=== PATIENT | male | born 1935 | race Caucasian/White ===

== ENCOUNTER → 2023-07-16 09:35 | Outpatient (REF) | payer MEDICARE, OTHER, SELFPAY ==
[2023-07-16 12:49] LABS: Blood Urea Nitrogen 40 mg/dl (9-20); Calcium 9.5 mg/dl (8.4-10.2); Carbon Dioxide 21 mmol/L (22-30); Chloride 109 mmol/L (98-107); Glucose 122 mg/dl (70-99); Potassium 4.6 mmol/L (3.5-5.1); Sodium 141 mmol/L (135-145)
== END ==
LOC: HWLAB 09:35
PROVIDERS: ATTENDING PHYSICIAN Specialist; FAMILY PHYSICIAN Nurse Practitioner Family; REFERRING PHYSICIAN Nuclear Medicine Nuclear Cardiology
DX: R80.9 Proteinuria, unspecified (principal); N18.32 Chronic kidney disease, stage 3b; N25.81 Secondary hyperparathyroidism of renal origin
CPT/HCPCS: 36415; 80048

== ENCOUNTER → 2023-08-07 11:15 | Outpatient (REF) | payer MEDICARE, OTHER, SELFPAY ==
[2023-08-07 16:30] LABS: Blood Urea Nitrogen 30 mg/dl (9-20); Calcium 9.3 mg/dl (8.4-10.2); Carbon Dioxide 18 mmol/L (22-30); Chloride 110 mmol/L (98-107); Glucose 124 mg/dl (70-99); Potassium 4.3 mmol/L (3.5-5.1); Sodium 137 mmol/L (135-145)
== END ==
LOC: HWLAB 11:15
PROVIDERS: ATTENDING PHYSICIAN Specialist; FAMILY PHYSICIAN Nurse Practitioner Family
DX: E78.5 Hyperlipidemia, unspecified (principal); R80.9 Proteinuria, unspecified; E03.9 Hypothyroidism, unspecified; N25.81 Secondary hyperparathyroidism of renal origin; N18.9 Chronic kidney disease, unspecified
CPT/HCPCS: 36415; 80048

== ENCOUNTER → 2023-09-17 09:28 | Outpatient (REF) | payer MEDICARE, OTHER, SELFPAY ==
[2023-09-17 13:07] LABS: Blood Urea Nitrogen 47 mg/dl (9-20); Calcium 9.6 mg/dl (8.4-10.2); Carbon Dioxide 22 mmol/L (22-30); Chloride 109 mmol/L (98-107); Glucose 107 mg/dl (70-99); Potassium 5.1 mmol/L (3.5-5.1); Sodium 138 mmol/L (135-145); eGFR 38.78
== END ==
LOC: HWLAB 09:28
PROVIDERS: ATTENDING PHYSICIAN Specialist; FAMILY PHYSICIAN Nurse Practitioner Family
DX: N25.81 Secondary hyperparathyroidism of renal origin (principal); N18.32 Chronic kidney disease, stage 3b; R80.9 Proteinuria, unspecified
CPT/HCPCS: 36415; 80048

== ENCOUNTER → 2023-10-17 10:00 | Outpatient (REF) | payer MEDICARE, OTHER, SELFPAY ==
[2023-10-17 12:21] LABS: Blood Urea Nitrogen 35 mg/dl (9-20); Calcium 9.7 mg/dl (8.4-10.2); Carbon Dioxide 19 mmol/L (22-30); Chloride 113 mmol/L (98-107); Glucose 121 mg/dl (70-99); Potassium 4.6 mmol/L (3.5-5.1); Sodium 141 mmol/L (135-145)
== END ==
LOC: HWLAB 10:00
PROVIDERS: ATTENDING PHYSICIAN Specialist; FAMILY PHYSICIAN Nurse Practitioner Family
DX: E78.5 Hyperlipidemia, unspecified (principal); E03.9 Hypothyroidism, unspecified; R80.9 Proteinuria, unspecified; N17.9 Acute kidney failure, unspecified; Z85.528 Personal history of other malignant neoplasm of kidney
CPT/HCPCS: 36415; 80048

== ENCOUNTER → 2023-11-17 11:19 | Outpatient (REF) | payer MEDICARE, OTHER, SELFPAY ==
[2023-11-17 16:04] LABS: Hematocrit 39.2 % (39.0-52.0); Hemoglobin 13.3 g/dL (13.0-18.0)
[2023-11-17 16:11] LABS: Albumin 4.1 g/dl (3.5-5.0); Blood Urea Nitrogen 36 mg/dl (9-20); Calcium 9.7 mg/dl (8.4-10.2); Carbon Dioxide 17 mmol/L (22-30); Chloride 113 mmol/L (98-107); Glucose 122 mg/dl (70-99); Phosphorus 3.8 mg/dl (2.5-4.5); Potassium 4.8 mmol/L (3.5-5.1); Sodium 140 mmol/L (135-145); eGFR 45.06
[2023-11-17 16:24] LABS: Protein/creatinine Ratio 0.3; Urine Protein 33 mg/dl
[2023-11-18 10:17] LABS: Intact PTH 63.2 pg/ml (13.6-85.8)
== END ==
LOC: HWLAB 11:19
PROVIDERS: ATTENDING PHYSICIAN Specialist; FAMILY PHYSICIAN Nurse Practitioner Family
DX: E03.9 Hypothyroidism, unspecified (principal); R80.9 Proteinuria, unspecified; N17.9 Acute kidney failure, unspecified
CPT/HCPCS: 36415; 80069; 82570; 83970; 84156; 85014; 85018

== ENCOUNTER → 2023-11-24 11:07 | Outpatient (REF) | payer MEDICARE, OTHER, SELFPAY ==
[2023-11-24 15:46] LABS: Blood Urea Nitrogen 33 mg/dl (9-20); Calcium 9.5 mg/dl (8.4-10.2); Carbon Dioxide 20 mmol/L (22-30); Chloride 111 mmol/L (98-107); Glucose 107 mg/dl (70-99); Potassium 4.7 mmol/L (3.5-5.1); Sodium 140 mmol/L (135-145); eGFR 45.06
== END ==
LOC: HWLAB 11:07
PROVIDERS: ATTENDING PHYSICIAN Specialist; FAMILY PHYSICIAN Nurse Practitioner Family
DX: N18.9 Chronic kidney disease, unspecified (principal); R80.9 Proteinuria, unspecified
CPT/HCPCS: 36415; 80048

== ENCOUNTER → 2024-01-08 11:04 | Outpatient (REF) | payer MEDICARE, OTHER, SELFPAY ==
[2024-01-08 16:30] LABS: Urine Albumin Trace (Neg - Trace); Urine Bilirubin Negative (Negative); Urine Character Clear (Clear); Urine Color Yellow; Urine Glucose 3+ (Negative); Urine Ketone Negative (Negative); Urine Leukocyte Negative (Negative); Urine Nitrite Negative (Negative); Urine Occult Blood Negative (Negative); Urine Specific Gravity 1.015 (<1.030); Urine Urobilinogen Negative (Neg - 1+)
[2024-01-08 16:36] LABS: % Basophils 0.8 % (0-2); % Eosinophils 5.6 % (0-6); % Immature Granulocytes 0.4 % (0-0.5); % Lymphocytes 23.5 % (20.5-51.1); % Monocytes 10.5 % (1.7-9.3); % Neutrophils 59.2 % (42.2-75.2); Absolute Basophils 0.1 10^3/uL (0-0.2); Absolute Eosinophils 0.6 10^3/uL (0-0.7); Absolute Lymphocytes 2.3 10^3/uL (1.2-3.4); Absolute Neutrophils 5.8 10^3/uL (1.4-6.5); Hematocrit 37.1 % (39.0-52.0); Hemoglobin 12.8 g/dL (13.0-18.0); Mean Corp Hgb Conc. 34.5 g/dL (33.0-37.0); Mean Corpuscular Hgb 33.2 pg (27.0-31.0); Mean Corpuscular Volume 96.4 fL (80.0-94.0); Mean Platelet Volume 10.1 fL (7.4-10.4); Nucleated Red Blood Cells % 0 % (-); Platelet Count 257 10^3/uL (130-400); Red Blood Cell Count 3.85 10^6/uL (4.70-6.10); Red Cell Dist. Width 12.8 % (11.5-14.5); White Blood Cell Count 9.8 10^3/uL (4.8-10.8)
[2024-01-08 16:39] LABS: ALT (SGPT) 17 U/L (0-50); AST (SGOT) 26 U/L (17-59); Albumin 4.2 g/dl (3.5-5.0); Alkaline Phosphatase 70 U/L (38-126); Blood Urea Nitrogen 43 mg/dl (9-20); Calcium 9.8 mg/dl (8.4-10.2); Carbon Dioxide 18 mmol/L (22-30); Chloride 110 mmol/L (98-107); Glucose 118 mg/dl (70-99); HDL Cholesterol 30 mg/dl; LDL Cholesterol, Calculated 95 mg/dl; Potassium 4.6 mmol/L (3.5-5.1); Sodium 137 mmol/L (135-145); Total Bilirubin 0.6 mg/dl (0.2-1.3); Total Cholesterol 158 mg/dl (50-199); Total Protein 7.2 g/dl (6.3-8.2); Triglyceride 167 mg/dl (10-149); Very Low Density Lipoprotein 33 mg/dl (0-30); eGFR 41.44
[2024-01-08 16:53] LABS: Microalbumin, Random Urine 14.1 mg/dl (0.6-1.7); Microalbumin/creatinine Ratio 135.7 mg/g
[2024-01-08 17:08] LABS: TSH Reflex To Free T4 3.62 uIU/ml (0.47-4.68)
== END ==
LOC: HWLAB 11:04
PROVIDERS: ATTENDING PHYSICIAN Specialist; FAMILY PHYSICIAN Nurse Practitioner Family
DX: R80.9 Proteinuria, unspecified (principal); E03.9 Hypothyroidism, unspecified; R73.01 Impaired fasting glucose; I35.1 Nonrheumatic aortic (valve) insufficiency; N18.9 Chronic kidney disease, unspecified; E78.5 Hyperlipidemia, unspecified; R20.0 Anesthesia of skin; R26.89 Other abnormalities of gait and mobility; M48.061 Spinal stenosis, lumbar region without neurogenic claudication; R26.81 Unsteadiness on feet; N18.31 Chronic kidney disease, stage 3a
CPT/HCPCS: 36415; 80053; 80061; 81003; 82043; 82570; 83036; 84443; 85025

== ENCOUNTER → 2024-02-11 11:11 | Outpatient (REF) | payer MEDICARE, OTHER, SELFPAY ==
[2024-02-11 13:42] LABS: Blood Urea Nitrogen 31 mg/dl (9-20); Calcium 9.4 mg/dl (8.4-10.2); Carbon Dioxide 17 mmol/L (22-30); Chloride 109 mmol/L (98-107); Glucose 107 mg/dl (70-99); Phosphorus 3.6 mg/dl (2.5-4.5); Potassium 4.7 mmol/L (3.5-5.1); Sodium 142 mmol/L (135-145); eGFR 41.44
== END ==
LOC: HWLAB 11:11
PROVIDERS: ATTENDING PHYSICIAN Specialist; FAMILY PHYSICIAN Nurse Practitioner Family
DX: R80.9 Proteinuria, unspecified (principal); N18.31 Chronic kidney disease, stage 3a
CPT/HCPCS: 36415; 80069

== ENCOUNTER → 2024-03-11 10:45 | Outpatient (REF) | payer MEDICARE, OTHER, SELFPAY ==
[2024-03-11 12:43] LABS: Blood Urea Nitrogen 27 mg/dl (9-20); Calcium 9.7 mg/dl (8.4-10.2); Carbon Dioxide 21 mmol/L (22-30); Chloride 109 mmol/L (98-107); Glucose 114 mg/dl (70-99); Potassium 4.4 mmol/L (3.5-5.1); Sodium 143 mmol/L (135-145); eGFR 44.78
== END ==
LOC: HWLAB 10:45
PROVIDERS: ATTENDING PHYSICIAN Specialist; FAMILY PHYSICIAN Nurse Practitioner Family
DX: Z90.5 Acquired absence of kidney (principal); N18.31 Chronic kidney disease, stage 3a
CPT/HCPCS: 36415; 80048

== ENCOUNTER → 2024-04-08 10:45 | Outpatient (REF) | payer MEDICARE, OTHER, SELFPAY ==
[2024-04-08 11:53] LABS: % Basophils 0.8 % (0-2); % Eosinophils 5.6 % (0-6); % Immature Granulocytes 0.5 % (0-0.5); % Lymphocytes 20.5 % (20.5-51.1); % Monocytes 9.9 % (1.7-9.3); % Neutrophils 62.7 % (42.2-75.2); Absolute Basophils 0.1 10^3/uL (0-0.2); Absolute Eosinophils 0.5 10^3/uL (0-0.7); Absolute Immature Granulocytes 0.1 10^3/uL (0-0.05); Hematocrit 38.2 % (39.0-52.0); Mean Corpuscular Hgb 33.7 pg (27.0-31.0); Mean Platelet Volume 9.4 fL (7.4-10.4); Nucleated Red Blood Cells % 0 % (-); Platelet Count 231 10^3/uL (130-400); Red Blood Cell Count 3.86 10^6/uL (4.70-6.10); Red Cell Dist. Width 12.8 % (11.5-14.5); White Blood Cell Count 9.6 10^3/uL (4.8-10.8)
[2024-04-08 12:37] LABS: ALT (SGPT) 19 U/L (0-50); AST (SGOT) 22 U/L (17-59); Albumin 4.1 g/dl (3.5-5.0); Alkaline Phosphatase 66 U/L (38-126); Blood Urea Nitrogen 29 mg/dl (9-20); Calcium 9.4 mg/dl (8.4-10.2); Carbon Dioxide 23 mmol/L (22-30); Chloride 107 mmol/L (98-107); Direct Bilirubin 0.2 mg/dl (0.0-0.4); Glucose 107 mg/dl (70-99); HDL Cholesterol 34 mg/dl; LDL Cholesterol, Calculated 95 mg/dl; Potassium 5.1 mmol/L (3.5-5.1); Sodium 144 mmol/L (135-145); Total Bilirubin 0.4 mg/dl (0.2-1.3); Total Cholesterol 158 mg/dl (50-199); Total Protein 7.2 g/dl (6.3-8.2); Triglyceride 145 mg/dl (10-149); Very Low Density Lipoprotein 29 mg/dl (0-30); eGFR 44.78
[2024-04-10 07:53] LABS: Quantiferon Mitogen minus NIL 9.96 IU/mL; Quantiferon NIL 0.04 IU/mL; Quantiferon Plus TB2 minus NIL 0.01 IU/mL (<=0.34); Quantiferon TB Gold Plus Negative (Negative)
== END ==
LOC: HWLAB 10:45
PROVIDERS: ATTENDING PHYSICIAN Dermatology; FAMILY PHYSICIAN Nurse Practitioner Family; OTHER PHYSICIAN Specialist; REFERRING PHYSICIAN Internal Medicine
DX: D22.5 Melanocytic nevi of trunk (principal); L81.4 Other melanin hyperpigmentation; D18.01 Hemangioma of skin and subcutaneous tissue; L82.1 Other seborrheic keratosis; Z08 Encounter for follow-up examination after completed treatment for malignant neoplasm; Z85.828 Personal history of other malignant neoplasm of skin; L40.0 Psoriasis vulgaris
CPT/HCPCS: 36415; 80048; 80061; 80076; 85025; 86480

== ENCOUNTER → 2024-07-13 11:36 | Outpatient (REF) | payer MEDICARE, OTHER, SELFPAY | LOC: HWRAD 11:36 | PROVIDERS: ATTENDING PHYSICIAN Nurse Practitioner Family | DX: R05.1 Acute cough (principal) | CPT/HCPCS: 71046 ==

== ENCOUNTER → 2024-07-16 09:59 | Outpatient (REF) | payer MEDICARE, OTHER, SELFPAY ==
[2024-07-16 12:18] LABS: ALT (SGPT) 19 U/L (0-50); AST (SGOT) 23 U/L (17-59); Albumin 4.1 g/dl (3.5-5.0); Alkaline Phosphatase 73 U/L (38-126); Blood Urea Nitrogen 28 mg/dl (9-20); Calcium 9.3 mg/dl (8.4-10.2); Carbon Dioxide 22 mmol/L (22-30); Chloride 106 mmol/L (98-107); Glucose 117 mg/dl (70-99); HDL Cholesterol 33 mg/dl; LDL Cholesterol, Calculated 95 mg/dl; Phosphorus 3.6 mg/dl (2.5-4.5); Potassium 4.3 mmol/L (3.5-5.1); Sodium 139 mmol/L (135-145); Total Bilirubin 0.8 mg/dl (0.2-1.3); Total Cholesterol 154 mg/dl (50-199); Total Protein 7.1 g/dl (6.3-8.2); Triglyceride 131 mg/dl (10-149); Very Low Density Lipoprotein 26 mg/dl (0-30); eGFR 41.44
[2024-07-16 12:32] LABS: Protein/creatinine Ratio 0.4; Urine Protein 50 mg/dl
[2024-07-16 12:43] LABS: TSH Reflex To Free T4 3.55 uIU/ml (0.47-4.68)
[2024-07-16 15:32] LABS: % Basophils 0.8 % (0-2); % Eosinophils 5.1 % (0-6); % Immature Granulocytes 0.3 % (0-0.5); % Lymphocytes 24.8 % (20.5-51.1); Absolute Basophils 0.1 10^3/uL (0-0.2); Absolute Eosinophils 0.5 10^3/uL (0-0.7); Absolute Lymphocytes 2.3 10^3/uL (1.2-3.4); Absolute Monocytes 0.9 10^3/uL (0.1-0.6); Absolute Neutrophils 5.5 10^3/uL (1.4-6.5); Hematocrit 39.2 % (39.0-52.0); Hemoglobin 13.3 g/dL (13.0-18.0); Mean Corp Hgb Conc. 33.9 g/dL (33.0-37.0); Mean Corpuscular Hgb 33.6 pg (27.0-31.0); Mean Platelet Volume 10.2 fL (7.4-10.4); Nucleated Red Blood Cells % 0 % (-); Platelet Count 233 10^3/uL (130-400); Red Blood Cell Count 3.96 10^6/uL (4.70-6.10); Red Cell Dist. Width 12.8 % (11.5-14.5); White Blood Cell Count 9.3 10^3/uL (4.8-10.8)
== END ==
LOC: HWLAB 09:59
PROVIDERS: ATTENDING PHYSICIAN Specialist; FAMILY PHYSICIAN Nurse Practitioner Family
DX: R26.89 Other abnormalities of gait and mobility (principal); Z13.31 Encounter for screening for depression; R80.9 Proteinuria, unspecified; E03.9 Hypothyroidism, unspecified; R73.01 Impaired fasting glucose; I35.1 Nonrheumatic aortic (valve) insufficiency; N18.9 Chronic kidney disease, unspecified; R20.0 Anesthesia of skin; E78.5 Hyperlipidemia, unspecified; R05.1 Acute cough
CPT/HCPCS: 36415; 80053; 80061; 82570; 83036; 84100; 84156; 84443; 85025

== ENCOUNTER → 2024-09-21 10:18 | Outpatient (REF) | payer MEDICARE, OTHER, SELFPAY ==
[2024-09-21 12:14] LABS: Albumin 4.2 g/dl (3.5-5.0); Blood Urea Nitrogen 41 mg/dl (9-20); Calcium 9.4 mg/dl (8.4-10.2); Carbon Dioxide 22 mmol/L (22-30); Chloride 110 mmol/L (98-107); Glucose 117 mg/dl (70-99); Phosphorus 3.7 mg/dl (2.5-4.5); Potassium 4.9 mmol/L (3.5-5.1); Sodium 142 mmol/L (135-145); eGFR 38.53
[2024-09-21 12:26] LABS: Hematocrit 39.4 % (39.0-52.0); Hemoglobin 13.6 g/dL (13.0-18.0); Intact PTH 115.4 pg/ml (13.6-85.8)
[2024-09-21 13:02] LABS: Protein/creatinine Ratio 0.4; Urine Protein 40 mg/dl
== END ==
LOC: HWLAB 10:18
PROVIDERS: ATTENDING PHYSICIAN Specialist; FAMILY PHYSICIAN Nurse Practitioner Family
DX: E78.5 Hyperlipidemia, unspecified (principal); E03.9 Hypothyroidism, unspecified; R80.9 Proteinuria, unspecified; N17.9 Acute kidney failure, unspecified; N25.81 Secondary hyperparathyroidism of renal origin
CPT/HCPCS: 36415; 80069; 82570; 83970; 84156; 85014; 85018

== ENCOUNTER → 2024-11-01 11:05 | Outpatient (REF) | payer MEDICARE, OTHER, SELFPAY ==
[2024-11-01 15:55] LABS: Blood Urea Nitrogen 39 mg/dl (9-20); Calcium 9.3 mg/dl (8.4-10.2); Carbon Dioxide 20 mmol/L (22-30); Chloride 112 mmol/L (98-107); Glucose 124 mg/dl (70-99); Sodium 142 mmol/L (135-145); eGFR 48.65
== END ==
LOC: HWLAB 11:05
PROVIDERS: ATTENDING PHYSICIAN Specialist; FAMILY PHYSICIAN Nurse Practitioner Family
DX: N18.30 Chronic kidney disease, stage 3 unspecified (principal)
CPT/HCPCS: 36415; 80048

== ENCOUNTER → 2024-12-28 11:05 | Outpatient (REF) | payer MEDICARE, OTHER, SELFPAY | LOC: HWRAD 11:05 | PROVIDERS: ATTENDING PHYSICIAN Surgery; FAMILY PHYSICIAN Nurse Practitioner Family | DX: N32.1 Vesicointestinal fistula (principal) | CPT/HCPCS: 74176 ==

== ENCOUNTER → 2025-01-14 10:25 | Outpatient (REF) | payer MEDICARE, OTHER, SELFPAY ==
[2025-01-14 12:28] LABS: Hematocrit 38.2 % (39.0-52.0); Hemoglobin 12.6 g/dL (13.0-18.0); Mean Corp Hgb Conc. 33.0 g/dL (33.0-37.0); Mean Corpuscular Volume 101.3 fL (80.0-94.0); Nucleated Red Blood Cells % 0 % (-); Platelet Count 240 10^3/uL (130-400); Red Cell Dist. Width 12.8 % (11.5-14.5)
[2025-01-14 12:53] LABS: Glycohemoglobin (HgbA1c) 6.0 % (4.0-5.6)
[2025-01-14 14:37] LABS: ALT (SGPT) 18 U/L (0-50); AST (SGOT) 22 U/L (17-59); Albumin 4.3 g/dl (3.5-5.0); Alkaline Phosphatase 68 U/L (38-126); Blood Urea Nitrogen 37 mg/dl (9-20); Calcium 9.4 mg/dl (8.4-10.2); Carbon Dioxide 25 mmol/L (22-30); Chloride 111 mmol/L (98-107); Glucose 107 mg/dl (70-99); HDL Cholesterol 31 mg/dl; LDL Cholesterol, Calculated 107 mg/dl; Potassium 5.4 mmol/L (3.5-5.1); Sodium 142 mmol/L (135-145); Total Protein 7.5 g/dl (6.3-8.2); Very Low Density Lipoprotein 26 mg/dl (0-30); eGFR 44.50
== END ==
LOC: HWLAB 10:25
PROVIDERS: ATTENDING PHYSICIAN Specialist; FAMILY PHYSICIAN Nurse Practitioner Family
DX: N18.30 Chronic kidney disease, stage 3 unspecified (principal); R26.89 Other abnormalities of gait and mobility; R26.81 Unsteadiness on feet; Z13.31 Encounter for screening for depression; R80.9 Proteinuria, unspecified; E03.9 Hypothyroidism, unspecified; R73.01 Impaired fasting glucose; Z85.46 Personal history of malignant neoplasm of prostate; Z85.528 Personal history of other malignant neoplasm of kidney; I35.1 Nonrheumatic aortic (valve) insufficiency; N18.9 Chronic kidney disease, unspecified; E78.5 Hyperlipidemia, unspecified; R20.0 Anesthesia of skin; M48.061 Spinal stenosis, lumbar region without neurogenic claudication; R05.1 Acute cough; N32.1 Vesicointestinal fistula
CPT/HCPCS: 36415; 80053; 80061; 82570; 83036; 83970; 84100; 84156; 84439; 84443; 85025

== ENCOUNTER → 2025-01-20 08:17 | Outpatient (REF) | payer MEDICARE, OTHER, SELFPAY | LOC: HWRCS 08:17 | PROVIDERS: ATTENDING PHYSICIAN Internal Medicine Cardiovascular Disease; FAMILY PHYSICIAN Nurse Practitioner Family | DX: I34.0 Nonrheumatic mitral (valve) insufficiency (principal); I35.1 Nonrheumatic aortic (valve) insufficiency | CPT/HCPCS: 93306 ==

== ENCOUNTER → 2025-01-27 11:14 | Outpatient (REF) | payer MEDICARE, OTHER, SELFPAY | LOC: HWRCS 11:14 | PROVIDERS: ATTENDING PHYSICIAN Internal Medicine Cardiovascular Disease; FAMILY PHYSICIAN Nurse Practitioner Family | DX: I34.0 Nonrheumatic mitral (valve) insufficiency (principal); I35.1 Nonrheumatic aortic (valve) insufficiency; R94.31 Abnormal electrocardiogram [ECG] [EKG] | CPT/HCPCS: 78452; 93017; A9500; J2785 ==

== ENCOUNTER → 2025-02-04 10:19 | Outpatient (REF) | payer MEDICARE, OTHER, SELFPAY ==
[2025-02-04 12:33] LABS: Hematocrit 36.7 % (39.0-52.0); Hemoglobin 12.1 g/dL (13.0-18.0); Mean Corp Hgb Conc. 33.0 g/dL (33.0-37.0); Mean Corpuscular Volume 99.5 fL (80.0-94.0); Nucleated Red Blood Cells % 0 % (-); Platelet Count 254 10^3/uL (130-400); Red Cell Dist. Width 12.6 % (11.5-14.5)
[2025-02-04 12:55] LABS: Blood Urea Nitrogen 41 mg/dl (9-20); Calcium 9.8 mg/dl (8.4-10.2); Carbon Dioxide 25 mmol/L (22-30); Chloride 110 mmol/L (98-107); Glucose 124 mg/dl (70-99); Iron 112 ug/dl (49-181); Potassium 5.1 mmol/L (3.5-5.1); Sodium 141 mmol/L (135-145); eGFR 48.34
[2025-02-04 13:04] LABS: Total Iron Binding Capacity 245 ug/dl (261-462)
[2025-02-04 13:24] LABS: Ferritin 153.0 ng/ml (17.9-464.0)
[2025-02-04 13:39] LABS: Vitamin B12 466 pg/ml (239-931)
== END ==
LOC: HWLAB 10:19
PROVIDERS: ATTENDING PHYSICIAN Nurse Practitioner Family
DX: D64.9 Anemia, unspecified (principal); D75.89 Other specified diseases of blood and blood-forming organs; K90.0 Celiac disease
CPT/HCPCS: 36415; 80048; 82607; 82728; 83540; 83550; 85025

== ENCOUNTER 2025-03-31 05:54 | Inpatient (IN) | payer MEDICARE, OTHER, SELFPAY ==
[2025-03-28 12:05] LABS: Hematocrit 36.9 % (39.0-52.0); Hemoglobin 12.1 g/dL (13.0-18.0); Mean Corp Hgb Conc. 32.8 g/dL (33.0-37.0); Mean Corpuscular Volume 101.9 fL (80.0-94.0); Platelet Count 310 10^3/uL (130-400); Red Cell Dist. Width 12.3 % (11.5-14.5)
[2025-03-28 12:24] LABS: INR 1.08; PT 14.3 Sec (11.4-14.6)
[2025-03-28 12:25] LABS: APTT 29.8 Sec (23.4-35.0)
[2025-03-28 12:36] LABS: ALT (SGPT) 18 U/L (0-50); AST (SGOT) 22 U/L (17-59); Albumin 4.1 g/dl (3.5-5.0); Alkaline Phosphatase 67 U/L (38-126); Blood Urea Nitrogen 30 mg/dl (9-20); Calcium 9.5 mg/dl (8.4-10.2); Carbon Dioxide 25 mmol/L (22-30); Chloride 108 mmol/L (98-107); Glucose 122 mg/dl (70-99); Potassium 5.2 mmol/L (3.5-5.1); Sodium 142 mmol/L (135-145); Total Protein 7.5 g/dl (6.3-8.2); eGFR 48.34
[2025-03-28 13:42] VITALS: BMI 32.0
[2025-03-28 14:56] LABS: Glycohemoglobin (HgbA1c) 6.2 % (4.0-5.9)
[2025-03-31] VITALS (26 sets, daily range): BP systolic 40–155; BP diastolic 52–77; BMI 32.0
[2025-03-31] MEDS: TYLENOL 1000 MG PO (06:49)
[2025-03-31] MEDS: HEPARIN 5000 UNITS SC (06:50)
[2025-03-31] MEDS: NORMOSOL-R/PLASMALYTE-A 1000 IV ×2 (06:53→19:51)
--- NOTE | 2025-03-31 14:51 | W.IMMPOSTOP ---
Surgical Immed Post Op Note
-
Primary Surgeon: David Tamez MD
Urologists: Osmani Singh MD and Ami Urena MD
Industrial Electrical Technician: FOZIA Israel and Nadege Pérez PA-C, JOSÉ MIGUEL
Pre-op Diagnosis: Colovesical fistula
Post-op Diagnosis: Same
Procedure Performed: Cystoscopy with left ureteral stent/ICG by Dr. Walker; Robotic cystorrhaphy by Dr. Urena.
Robotic low anterior resection with takedown of splenic flexure, intracorporeal anastomosis
Anesthesia Type: GET
Specimen / Cultures: Sigmoid colon (open end is proximal) and additional portion of sigmoid (open end is distal)
Estimated Blood Loss: 100cc
Complications: None
Operative Findings: Colovesical fistula
Long segment of chronic diverticulitis
28mm EEA
Normal leak test
#19 Johnny in the pelvis (near bladder repair)
Left ureteral stent removed at the end (intact)
Patient's updated in the recovery room
[2025-03-31] MEDS: ZOFRAN 4 MG IV (15:14)
[2025-03-31 15:34] LABS: Glucose - Point of Care 215 mg/dl (70-99)
[2025-03-31] MEDS: NOVOLOG vial 1 UNITS SC (15:49)
[2025-03-31 16:03] LABS: Blood Urea Nitrogen 23 mg/dl (9-20); Calcium 8.1 mg/dl (8.4-10.2); Carbon Dioxide 21 mmol/L (22-30); Chloride 106 mmol/L (98-107); Estimated Creatinine Clearance 46 ml/min; Glucose 197 mg/dl (70-99); Hematocrit 32.3 % (39.0-52.0); Hemoglobin 10.4 g/dL (13.0-18.0); Mean Corp Hgb Conc. 32.2 g/dL (33.0-37.0); Mean Corpuscular Volume 99.7 fL (80.0-94.0); Platelet Count 234 10^3/uL (130-400); Potassium 4.2 mmol/L (3.5-5.1); Red Cell Dist. Width 12.5 % (11.5-14.5); Sodium 138 mmol/L (135-145); eGFR 58.17
--- NOTE | 2025-03-31 16:35 | CON.HOSP ---
Addendum entered and electronically signed by Karina Whitehead MD 03/31/25 17:38:
Leukocytosis:
Possibly reactive, received IV antibiotic perioperatively.
Consider reinstate antibiotic if worsening symptoms
Original Note:
Consultation
-
Requesting Provider: David Tamez MD
Performing Provider: Karina Whitehead MD
Reason for Consultation: Medical management
Family Physician
-
Family Physician: JOSÉ MIGUEL Jones
Chief Complaint
-
Postoperative medical management
History of Present Illness
Patient is a pleasant 89 years old male with history of diabetes, hypertension, hyperlipidemia, hypothyroidism, history of renal cell carcinoma status post nephrectomy in 2005 who came to the hospital for elective colovesicular fistula repair done
by colorectal surgery/urologist.
Patient seen and examined in the PACU, denies chest pain or shortness of breath, complaining of abdominal pain.
Consult requested for hospitalist for medical manage.
Medical History
Past Medical History
Past Medical History: Reports Cancer
Additional Past Medical History:
Cancer (Renal cell CA 2005. Prostate cancer 2006.), Hypothyroidism, Other (Osteoarthritis right knee, diverticulitis)
Past Surgical History: Reports Other
Additional Past Surgical History:
Cholecystectomy, Orthopedic (Ankle surgeries), Urological (Right nephrectomy 2005, prostatectomy 2006)
Social History
Tobacco: Non-smoker
Alcohol: None
Drug: None
Living: With Family
Family History
Family History: Reviewed & Not Pertinent
Allergies / Home Medications
Allergies reflects when Allergies were last updated in [employer].
Home Medications with original date entered in [employer]
Allergy/Medication List:
Allergies
Allergy/AdvReac Type Severity Reaction Status Date / Time
gluten Allergy Unknown Verified 03/28/25 14:40
Home Medications
levothyroxine 25 mcg tablet 25 mcg PO DAILY Thyroid 05/11/12
ascorbic acid (vitamin C) 500 mg tablet (Vitamin C) 2,000 mg PO DAILY Supplement 11/14/21
cholecalciferol (vitamin D3) 25 mcg (1,000 unit) tablet 1,000 units PO DAILY Supplement 11/14/21
glucosamine QPc-T0-Gjikhntth ari 1,500 mg-400 unit-100 mg tablet (Osteo Bi-Flex (5-Loxin)) 2 ea PO DAILY Supplement 11/14/21
lisinopril 2.5 mg tablet 5 mg PO DAILY@0100 Blood pressure 11/14/21
multivitamin with folic acid 400 mcg tablet (Tab-A-David) 1 tab PO DAILY Supplement 11/14/21
vitamin B complex 1 tab PO DAILY Supplement 11/14/21
Skyrizi 1 dose SC Q12W 03/28/25
bisacodyl 5 mg tablet,delayed release (Dulcolax (bisacodyl)) 5 mg PO DIRECTED 03/28/25
empagliflozin 25 mg tablet (Jardiance) 25 mg PO DAILY 03/28/25
metronidazole 1 dose PO DIRECTED 03/28/25
neomycin 1 dose PO DIRECTED 03/28/25
peg 3350-electrolytes 236 gram-22.74 gram-6.74 gram-5.86 gram solution (Golytely) ml PO DIRECTED 03/28/25
sodium bicarbonate 650 mg tablet 650 mg PO BID 03/28/25
Review of Systems
-
Unable to obtain full review of systems at this time due to: Acuity
Respiratory: Reports Trouble Breathing
Cardiac: Reports Chest Pain
Abdomen/GI: Denies Abdominal Pain
Physical Exam
Vital Signs
Vital Signs
Temp Pulse Resp BP Pulse Ox
97.3 F 73 23 129/77 98
03/31/25 16:08 03/31/25 16:15 03/31/25 16:15 03/31/25 16:15 03/31/25 16:15
Physical Exam
General: Well Developed, Well Nourished and No Apparent Distress
HEENT: Normocephalic, Moist Mucous Membranes and Atraumatic
Respiratory: Rales
Cardiac: S1/S2 and Regular Rhythm; Negative Murmur or Rub
GI: Tender and Other (KAT drain in place)
Rectal: Deferred by Provider
Musculoskeletal: No Clubbing, No Cyanosis and No Edema
Skin: Negative Rash
Neuro: Nonfocal/Grossly Intact
Laboratory Results
-
Laboratory Results
03/31/25 15:37
03/31/25 15:37
PT 14.3 Sec (11.4-14.6) 03/28/25 09:10
INR 1.08 03/28/25 09:10
APTT 29.8 Sec (23.4-35.0) 03/28/25 09:10
Total Bilirubin 0.6 mg/dl (0.2-1.3) 03/28/25 09:10
AST 22 U/L (17-59) 03/28/25 09:10
ALT 18 U/L (0-50) 03/28/25 09:10
Alkaline Phosphatase 67 U/L (38-126) 03/28/25 09:10
Impression / Plan
-
Impression :
patient is 89 years old with history of colovesicular fistula admitted for elective Cystoscopy with left ureteral stent/ICG by Dr. Walker; Robotic cystorrhaphy by Dr. Urena. Robotic low anterior resection with takedown of splenic flexure,
intracorporeal anastomosis
Assessment/plan:
Postoperative medical management.
Patient with colovesicular fistula, admitted for elective surgery done by rectal surgery and urology.
Continue pain control.
Started on clear liquid diet.
Continue management in IMU postoperative
Monitor H&H postoperatively
Advance diet as tolerated by primary team
PT/OT consult.
Status post Invanz in the OR, medication to continue antibiotic currently
History of diabetes mellitus
Continue home medication
Insulin sliding scale
Diabetic diet
Hemoglobin A1c
History of hypertension
Continue home meds
History of hypothyroidism.
Continue Synthroid
History of renal cell carcinoma status post nephrectomy in 2005.
Kidney function stable.
Continue to monitor.
Avoid nephrotoxic
CODE STATUS: Full code
DVT prophylaxis: SCDS, pharmacological DVT prophylaxis once cleared with surgery.
Diet: Liquid diet now, advance to diabetic diet once cleared by surgery
Disposition: Admit to IMU for close monitoring.
Total time spent on today's encounter was 75 minutes which included time spent in counseling the patient/family regarding diagnosis and treatment plan as listed above, goals of care, and symptom management. Case was discussed with nursing staff,
specialists, and care coordinators/case management. All labs and imaging personally reviewed by me. Remainder the time spent in detailed review of previous records, lab data, imaging, and other medical provider documentation.
--- NOTE | 2025-03-31 18:29 | PTCARENOTE ---
Pt received from ED via bed. VSS. Surgical incisions C/D/I. Family at bedside.
[2025-03-31] MEDS: TYLENOL PO ×2 (19:37)
[2025-03-31] MEDS: NORMOSOL-R/PLASMALYTE-A IV (19:37)
[2025-03-31] MEDS: ROXICODONE 5 MG PO ×2 (19:44→23:47)
[2025-03-31] MEDS: TYLENOL 650 MG PO ×2 (19:51→23:30)
[2025-04-01] VITALS (30 sets, daily range): BP systolic 97–149; BP diastolic 49–79; PULSE 73–80; O2SAT 97
--- NOTE | 2025-04-01 00:41 | PTCARENOTE ---
Assumed care of patient from kevin RN. Pt aaox3 and [place] with b/t HAs in place. NSR on the monitor, SpO2 97% on 1L NC. Turner in place draining yellow urine. Patient with three abdominal lap sites, one lower abdomen transverse incision; all sites
are approximated and c/d/i. RLQ abdominal KAT drain with 150 mL of sanguinous output so far this shift. Dressing at site of KAT drain C/D/I. RUBIA Tylenol and additional PRN pain meds administered for pt's abdominal pain r/t surgery (see MAR). Patient
is currently resting in bed asleep with call sheffield in reach.
[2025-04-01] MEDS: TYLENOL 650 MG PO ×4 (04:29→23:09)
[2025-04-01] MEDS: SYNTHROID 25 MCG PO (04:29)
[2025-04-01 05:48] LABS: Hematocrit 30.3 % (39.0-52.0); Hemoglobin 10.3 g/dL (13.0-18.0); Mean Corp Hgb Conc. 34.0 g/dL (33.0-37.0); Mean Corpuscular Volume 99.3 fL (80.0-94.0); Nucleated Red Blood Cells % 0 % (-); Platelet Count 224 10^3/uL (130-400); Red Cell Dist. Width 12.7 % (11.5-14.5)
[2025-04-01 06:02] LABS: Blood Urea Nitrogen 23 mg/dl (9-20); Calcium 8.0 mg/dl (8.4-10.2); Carbon Dioxide 25 mmol/L (22-30); Chloride 106 mmol/L (98-107); Estimated Creatinine Clearance 43 ml/min; Glucose 138 mg/dl (70-99); Potassium 4.6 mmol/L (3.5-5.1); Sodium 137 mmol/L (135-145); eGFR 52.84
--- NOTE | 2025-04-01 08:52 | W.PN.CRS1 ---
Today's Communication / Plan
-
clears
OOB
maintain chavez
stent d/c'ed
start heparin sq
Assessment/Plan
-
POD#1 Robotic low anterior resection secondary to colovesical fistula
Patient only has one kidney
vitals: normal
Urine output: 700ml
KAT drain: 350ml
-Continue on clears today with ivfs
-OOB as tolerated with PT/OT
-Appreciate hospitalist
-Maintain KAT drain until discharge
-Continue chavez secondary to colovesical fistula, will keep in until urology determination
-Start heparin subq for dvt prophylaxis. TEDS/SCDS in place.
-OR pathology pending
-Stent removed at bedside
-Pain control: Tyelnol standing, Dilaudid and oxycodone PRN
Subjective Data
Procedure
03/31/2025- Cystoscopy with left ureteral stent/ICG by Dr. Walker; Robotic cystorrhaphy by Dr. Urena.
Robotic low anterior resection with takedown of splenic flexure, intracorporeal anastomosis
Subjective Data
Date of Service: April 01, 2025
Patient states he feels a little bloated this morning. He hasn't tried clears yet. Denies nausea or vomiting. Mild pain but medication is helping.
Objective Data
-
Vital Signs
Temp Pulse Resp BP Pulse Ox
98.0 F 66 17 121/62 97
04/01/25 06:10 04/01/25 05:46 04/01/25 05:46 04/01/25 05:46 04/01/25 05:46
Intake & Output
03/31/25 04/01/25 04/02/25
06:59 06:59 06:59
Intake Total 1920 / 1920
Output Total 1050 / 1050
Balance 870 / 870
Intake:
Oral fluids 720 / 720
IV fluids (Total) 1200 / 1200
Normosol 300 / 300
Output:
Drain Output (Total) 350 / 350
Lower Abdomen Robinson-Warren 350 / 350
Urine, Chavez 700 / 700
Lab Results
04/01/25 05:19
04/01/25 05:19
Physical Exam
-
General: No Acute Distress and AOx3
Abdomen: Soft, Distended (mild), Tender (mild around incisions) and Other (KAT - serosanginous)
Skin: Warm and Dry
Wound: No Signs of Infection
Incision: Clear, Dry, Intact
[2025-04-01 09:10] LABS: Glucose - Point of Care 126 mg/dl (70-99)
[2025-04-01] MEDS: SODIUM BICARBONATE 650 MG PO ×2 (09:21→23:09)
[2025-04-01] MEDS: NORMOSOL-R/PLASMALYTE-A 1000 IV ×2 (11:45→23:09)
[2025-04-01 13:20] LABS: Glucose - Point of Care 124 mg/dl (70-99)
[2025-04-01] MEDS: TYLENOL PO ×2 (13:29→21:00)
--- NOTE | 2025-04-01 17:35 | W.PN.HOSP.TC ---
Today's Communication/Plan
-
See plan
Assessment / Plan
Assessment / Plan
Physical Exam
General: Well Developed, Well Nourished and No Apparent Distress
HEENT: Normocephalic, Moist Mucous Membranes and Atraumatic
Respiratory: Rales
Cardiac: S1/S2 and Regular Rhythm; Negative Murmur or Rub
GI: Tender and Other (KAT drain in place)
Rectal: Deferred by Provider
Musculoskeletal: No Clubbing, No Cyanosis and No Edema
Skin: Negative Rash
Neuro: Nonfocal/Grossly Intact
Assessment/Plan
89 year old male with history of colovesicular fistula admitted for elective Cystoscopy with left ureteral stent/ICG by Dr. Singh; Robotic cystorrhaphy by Dr. Urena. Robotic low anterior resection with takedown of splenic flexure,
intracorporeal anastomosis
Postoperative medical management.
Patient with colovesicular fistula, admitted for elective surgery done by rectal surgery and urology.
Continue pain control.
Started on clear liquid diet -- continue
Continue management in IMU postoperative
Monitor H&H postoperatively
Advance diet as tolerated by primary team
PT/OT consult.
Status post Invanz in the OR
Leukocytosis:
Possibly reactive, received IV antibiotic perioperatively.
Consider reinstate antibiotic if worsening symptoms
History of diabetes mellitus
Insulin sliding scale
Diabetic diet
Hemoglobin A1c on 03/28/25 was 6.2%
History of hypertension
Continue home Lisinopril
History of hypothyroidism.
Continue Synthroid
History of renal cell carcinoma status post nephrectomy in 2005.
Kidney function stable.
Continue to monitor.
Avoid nephrotoxic
CODE STATUS: Full code
DVT prophylaxis: SCDS, pharmacological DVT prophylaxis with subq Heparin as per surgery
Diet: Liquid diet now, advance to diabetic diet once cleared by surgery
Disposition: Continue to monitor in IMU for close monitoring.
Anticipated Discharge: > 48 hours
Subjective/Interval History
-
Date of Service: April 01, 2025
Patient was seen and examined. He denied any new symptoms or complaints.
Objective Data
-
Labs:
Laboratory Results
04/01/25
05:19
WBC 14.5 H
Hgb 10.3 L
Hct 30.3 L
Plt Count 224
Sodium 137
Potassium 4.6
Chloride 106
Carbon Dioxide 25
BUN 23 H
Creatinine 1.3
Glucose 138 H
Calcium 8.0 L
Vital Signs:
Vital Signs
Temp Pulse Resp BP Pulse Ox
97.6 F 65 18 139/57 95
04/01/25 16:52 04/01/25 14:00 04/01/25 14:00 04/01/25 14:00 04/01/25 14:13
I&O
03/31/25 04/01/25 04/02/25
06:59 06:59 06:59
Intake Total 1920 / 1920 540 / 540
Output Total 1050 / 1050 325 / 325
Balance 870 / 870 215 / 215
--- NOTE | 2025-04-01 17:40 | PTCARENOTE ---
Pt's assessment as documented. Aox3. NSR on tele monitor. OOB to chair with PT. Surgical incisions C/D/I. KAT drain with large amount of drainage. Family at bedside, updated on plan of care. Pt ringing appropriately, call sheffield within reach.
[2025-04-01] MEDS: HEPARIN 5000 UNITS SC ×2 (17:50→23:10)
[2025-04-01 17:59] LABS: Glucose - Point of Care 137 mg/dl (70-99)
--- NOTE | 2025-04-01 18:16 | CM ---
I.A: Completed By JONATHON Boogie
Patient lives in a 2 Story House with hsi with 12 steps to enter, a rolling walkinger, cane, No othe rDME, No VN/PT, and No Inpatient Rehab..
PCP: Philip Pompa
Pharmacy: [facility].
Consult in for DC planning, but PT/OT did not walk the patient yet so will continue to follow. PLAN: Home with PT vs. No Needs.
[2025-04-01 21:58] LABS: Glucose - Point of Care 132 mg/dl (70-99)
[2025-04-02] VITALS (15 sets, daily range): BP systolic 102–145; BP diastolic 46–91; BMI 32.9; BMI 33.6
[2025-04-02] MEDS: ZESTRIL 5 MG PO (00:05)
[2025-04-02] MEDS: SYNTHROID 25 MCG PO (04:43)
[2025-04-02] MEDS: TYLENOL 650 MG PO ×4 (04:43→19:42)
[2025-04-02 05:35] LABS: Blood Urea Nitrogen 23 mg/dl (9-20); Calcium 7.8 mg/dl (8.4-10.2); Carbon Dioxide 25 mmol/L (22-30); Chloride 107 mmol/L (98-107); Estimated Creatinine Clearance 41 ml/min; Glucose 109 mg/dl (70-99); Potassium 4.0 mmol/L (3.5-5.1); Sodium 134 mmol/L (135-145); eGFR 48.34
[2025-04-02 05:37] LABS: Hematocrit 27.6 % (39.0-52.0); Hemoglobin 9.3 g/dL (13.0-18.0); Mean Corp Hgb Conc. 33.7 g/dL (33.0-37.0); Mean Corpuscular Volume 100.0 fL (80.0-94.0); Nucleated Red Blood Cells % 0 % (-); Platelet Count 179 10^3/uL (130-400); Red Cell Dist. Width 12.8 % (11.5-14.5)
--- NOTE | 2025-04-02 07:28 | PTCARENOTE ---
overnight associate note. Pt aaox3 and JENA. SpO2 95% on RA. Turner in place draining yellow urine. Dressing at site of KAT drain saturated. Dressing reinforced with split gauze and ABD pad. VS and assessment as documented. Patient is currently resting in bed
asleep with call sheffield in reach.
[2025-04-02 07:50] LABS: Glucose - Point of Care 103 mg/dl (70-99)
--- NOTE | 2025-04-02 07:59 | W.PN.HOSP.TC ---
Today's Communication/Plan
-
See plan, stable
Assessment / Plan
Assessment / Plan
Physical Exam
General: Well Developed, Well Nourished and No Apparent Distress
HEENT: Normocephalic, Moist Mucous Membranes and Atraumatic
Respiratory: Rales
Cardiac: S1/S2 and Regular Rhythm; Negative Murmur or Rub
GI: Tender and Other (KAT drain in place)
Rectal: Deferred by Provider
Musculoskeletal: No Clubbing, No Cyanosis and No Edema
Skin: Negative Rash
Neuro: Nonfocal/Grossly Intact
Assessment/Plan
89 year old male with history of colovesicular fistula admitted for elective Cystoscopy with left ureteral stent/ICG by Dr. Singh; Robotic cystorrhaphy by Dr. Urena. Robotic low anterior resection with takedown of splenic flexure,
intracorporeal anastomosis
Postoperative medical management.
Patient with colovesicular fistula, admitted for elective surgery done by rectal surgery and urology.
Continue pain control.
Started on clear liquid diet -- continue
Continue management in IMU postoperative
Monitor H&H postoperatively
Advance diet as tolerated by primary team
PT/OT consult.
Status post Invanz in the OR
Leukocytosis:
Possibly reactive, received IV antibiotic perioperatively.
Consider reinstate antibiotic if worsening symptoms
History of diabetes mellitus
Insulin sliding scale
Diabetic diet
Hemoglobin A1c on 03/28/25 was 6.2%
History of hypertension
Continue home Lisinopril
History of hypothyroidism.
Continue Synthroid
History of renal cell carcinoma status post nephrectomy in 2005.
Kidney function stable.
Continue to monitor.
Avoid nephrotoxic
CODE STATUS: Full code
DVT prophylaxis: SCDS, pharmacological DVT prophylaxis with subq Heparin as per surgery
Diet: Liquid diet now, advance to diabetic diet once cleared by surgery
Disposition: Continue to monitor in IMU for close monitoring.
Anticipated Discharge: > 48 hours
Subjective/Interval History
-
Date of Service: April 02, 2025
Patient was seen and examined. He denied any new symptoms or complaints.
Objective Data
-
Labs:
Laboratory Results
04/02/25
04:46
WBC 13.1 H
Hgb 9.3 L
Hct 27.6 L
Plt Count 179 D
Sodium 134 L
Potassium 4.0
Chloride 107
Carbon Dioxide 25
BUN 23 H
Creatinine 1.4 H
Glucose 109 H
Calcium 7.8 L
Vital Signs:
Vital Signs
Temp Pulse Resp BP Pulse Ox
97.5 F 56 19 124/56 96
04/02/25 07:34 04/02/25 07:00 04/02/25 07:00 04/02/25 07:00 04/02/25 07:00
I&O
04/01/25 04/02/25 04/03/25
06:59 06:59 06:59
Intake Total 1919
Output Total 1050 / 1050 1585 / 1585
Balance 870 / 870 335 / 335
[2025-04-02] MEDS: HEPARIN 5000 UNITS SC ×2 (08:27→15:20)
[2025-04-02] MEDS: SODIUM BICARBONATE 650 MG PO ×2 (08:27→19:42)
--- NOTE | 2025-04-02 08:32 | PTCARENOTE ---
Received patient from shift supervisor melting. Patient resting comfortably in bed. AAO, VSS. No events noted overnight. No complaints of pain at this time aside from a little back pain relieved by the tylenol. Normosol @ 75mL/hr through IV. Lap sites and
transverse incision approximated and intact. Right side KAT with serosanguineous output. Will get OOB to chair, and try walking in the room with rolling walker. No testing scheduled at this time. Call sheffield in reach.
--- NOTE | 2025-04-02 09:36 | W.PN.CRS1 ---
Addendum entered and electronically signed by Rasheed Martinez MD 04/02/25 15:04:
Patient seen and examined in follow-up with surgical PA. Agree with documented progress note.
Postoperative incisional pain control.
No nausea. Passing flatus, no bowel movement
AFVSS
NAD AAO x 3
ABD: Soft, nondistended, mild incisional tenderness.
KAT with serosanguineous fluid.
Chavez clear yellow urine
A/P: POD #2 status post RAL LAR and takedown colovesical fistula
Overall doing well postop.
Reactive leukocytosis improving
Slight drift in hemoglobin but no signs of bleeding
Cautious dietary advancement, full liquids
Maintain Chavez due to CV fistula repair
Original Note:
Today's Communication / Plan
-
advance to fulls
maintain chavez
Assessment/Plan
-
POD#2 Robotic low anterior resection secondary to colovesical fistula
Patient only has one kidney
vitals: normal
Urine output: 1275ml
KAT drain: 310ml
-Advance to full liquids with ivfs
-OOB as tolerated with PT/OT
-Appreciate hospitalist
-Maintain KAT drain until discharge
-Continue chavez secondary to colovesical fistula, will keep in until urology determination
-Heparin subq for dvt prophylaxis. TEDS/SCDS in place.
-OR pathology pending
-Stent removed at bedside
-Pain control: Tylenol standing, Dilaudid and oxycodone PRN
Subjective Data
Procedure
03/31/2025- Cystoscopy with left ureteral stent/ICG by Dr. Walker; Robotic cystorrhaphy by Dr. Urena.
Robotic low anterior resection with takedown of splenic flexure, intracorporeal anastomosis
Subjective Data
Date of Service: April 02, 2025
Patient states he is feeling well. He is tolerating clears. He has flatus but no bowel movements yet. Pain is minimal. Denies nausea or vomiting.
Objective Data
-
Vital Signs
Temp Pulse Resp BP Pulse Ox
97.5 F 56 19 124/56 96
04/02/25 07:34 04/02/25 07:00 04/02/25 07:00 04/02/25 07:00 04/02/25 07:00
Intake & Output
04/01/25 04/02/25 04/03/25
06:59 06:59 06:59
Intake Total 1920 / 1920 1920 / 1920
Output Total 1050 / 1050 1585 / 1585
Balance 870 / 870 335 / 335
Intake:
Oral fluids 720 / 720 1020 / 1020
IV fluids (Total) 1200 / 1200 900 / 900
Normosol 300 / 300
Output:
Drain Output (Total) 350 / 350 310 / 310
Lower Abdomen Robinson-Warren 350 / 350 310 / 310
Urine, Chavez 700 / 700 1275 / 1275
Lab Results
04/02/25 04:46
04/02/25 04:46
Physical Exam
-
General: No Acute Distress and AOx3
Abdomen: Soft, Non Distended and Non Tender
Skin: Warm and Dry
Incision: Clear, Dry, Intact
[2025-04-02] MEDS: TYLENOL PO (12:05)
[2025-04-02 13:05] LABS: Glucose - Point of Care 117 mg/dl (70-99)
--- NOTE | 2025-04-02 16:37 | PTCARENOTE ---
Patient OOB to chair. Walked approx. 100ft in the room with a rolling walker with minimum assistance.
[2025-04-02 18:23] LABS: Glucose - Point of Care 126 mg/dl (70-99)
[2025-04-02] MEDS: NORMOSOL-R/PLASMALYTE-A 1000 IV (19:56)
[2025-04-02] MEDS: ROXICODONE 5 MG PO (20:43)
--- NOTE | 2025-04-02 20:47 | PTCARENOTE ---
Scheduled tylenol given at 1999. Incisional pain controlled but has persistent back pain. Repositioned in bed. Pt now stating his back pain is not relieved. Oxycodone 5 mg given for breakthrough pain. Continuing to monitor.
[2025-04-02 21:43] LABS: Glucose - Point of Care 120 mg/dl (70-99)
[2025-04-03] VITALS (14 sets, daily range): BP systolic 112–166; BP diastolic 49–108; BMI 32.2
[2025-04-03] MEDS: HEPARIN 5000 UNITS SC ×3 (01:34→17:11)
[2025-04-03] MEDS: TYLENOL 650 MG PO ×6 (01:35→21:22)
[2025-04-03] MEDS: ZESTRIL 5 MG PO (01:35)
[2025-04-03] MEDS: SYNTHROID 25 MCG PO (05:15)
[2025-04-03 05:31] LABS: Hematocrit 26.8 % (39.0-52.0); Hemoglobin 9.2 g/dL (13.0-18.0); Mean Corp Hgb Conc. 34.3 g/dL (33.0-37.0); Mean Corpuscular Volume 99.3 fL (80.0-94.0); Platelet Count 166 10^3/uL (130-400); Red Cell Dist. Width 12.6 % (11.5-14.5)
[2025-04-03 05:52] LABS: Blood Urea Nitrogen 16 mg/dl (9-20); Calcium 8.0 mg/dl (8.4-10.2); Carbon Dioxide 24 mmol/L (22-30); Chloride 109 mmol/L (98-107); Estimated Creatinine Clearance 51 ml/min; Glucose 97 mg/dl (70-99); Potassium 4.2 mmol/L (3.5-5.1); Sodium 137 mmol/L (135-145); eGFR > 60.00
--- NOTE | 2025-04-03 08:29 | W.PN.CRS1 ---
Today's Communication / Plan
-
try fulls for breakfast then advance to low residue
transfer to med surg
d/c ivfs
Assessment/Plan
-
POD#3 Robotic low anterior resection secondary to colovesical fistula
Patient only has one kidney
vitals: normal
Urine output: 2050ml
KAT drain: 305ml
-Advance to low residue if tolerates fulls (patient did not try fulls yesterday)
-Transfer to med surg
-D/C IVFs
-OOB as tolerated with PT/OT
-Appreciate hospitalist
-Maintain KAT drain until discharge
-Continue chavez secondary to colovesical fistula, will keep in until urology determination
-Heparin subq for dvt prophylaxis. TEDS/SCDS in place.
-OR pathology pending
-Pain control: Tylenol standing, Dilaudid and oxycodone PRN
-Dispo: home with PT vs no needs, anticipate as soon as tomorrow
Subjective Data
Procedure
03/31/2025- Cystoscopy with left ureteral stent/ICG by Dr. Walker; Robotic cystorrhaphy by Dr. Urena.
Robotic low anterior resection with takedown of splenic flexure, intracorporeal anastomosis
Subjective Data
Date of Service: April 03, 2025
Patient states he feels well. He denies nausea or vomiting. He has virtually no pain. He has bowel movements (no blood) and has flatus.
Objective Data
-
Vital Signs
Temp Pulse Resp BP Pulse Ox
97.5 F 55 15 137/58 95
04/03/25 07:00 04/03/25 01:35 04/02/25 22:00 04/03/25 01:35 04/02/25 22:00
Intake & Output
04/02/25 04/03/25 04/04/25
06:59 06:59 06:59
Intake Total 1920 / 1920 1380 / 1380
Output Total 1585 / 1585 2805 / 2805
Balance 335 / 335 -1425 / -1425
Intake:
Oral fluids 1020 / 1020 480 / 480
IV fluids (Total) 900 / 900 900 / 900
Output:
Drain Output (Total) 310 / 310 305 / 305
Lower Abdomen Robinson-Warren 310 / 310 305 / 305
Urine, Chavez 1275 / 1275 2049
Urine, Voided 450 / 450
Other:
Number of unmeasured liquid
stools
Rectum 1
Lab Results
04/03/25 05:12
04/03/25 05:12
Physical Exam
-
General: No Acute Distress and AOx3
Abdomen: Soft, Non Distended, Non Tender and Other (KAT drain serosanginous)
Skin: Warm and Dry
Incision: Clear, Dry, Intact
[2025-04-03 08:48] LABS: Glucose - Point of Care 104 mg/dl (70-99)
[2025-04-03] MEDS: SODIUM BICARBONATE 650 MG PO ×2 (09:16→21:23)
--- NOTE | 2025-04-03 11:24 | PTCARENOTE ---
Report given to Alejandrina CASTRO for transfer to room 210. Patient educated about plan of care and new room. Patient is in good spirits. Mild back pain relieved with Tylenol. Patient tolerated clear liquid diet, concerned about gluten free full liquid
options. Food line contacted patient to guide him with ordering safely.
[2025-04-03] MEDS: NORMOSOL-R/PLASMALYTE-A IV ×2 (12:30→17:52)
[2025-04-03 13:34] LABS: Glucose - Point of Care 119 mg/dl (70-99)
[2025-04-03 17:45] LABS: Glucose - Point of Care 122 mg/dl (70-99)
--- NOTE | 2025-04-03 18:03 | W.PN.HOSP.TC ---
Today's Communication/Plan
-
Was on oxygen in IMU, now weaned off to room air
See plan
Assessment / Plan
Assessment / Plan
Physical Exam
General: Well Developed, Well Nourished and No Apparent Distress
HEENT: Normocephalic, Moist Mucous Membranes and Atraumatic
Respiratory: Rales
Cardiac: S1/S2 and Regular Rhythm; Negative Murmur or Rub
GI: Tender and Other (KAT drain in place)
Rectal: Deferred by Provider
Musculoskeletal: No Clubbing, No Cyanosis and No Edema
Skin: Negative Rash
Neuro: Nonfocal/Grossly Intact
Assessment/Plan
89 year old male with history of colovesicular fistula admitted for elective Cystoscopy with left ureteral stent/ICG by Dr. Singh; Robotic cystorrhaphy by Dr. Urena. Robotic low anterior resection with takedown of splenic flexure,
intracorporeal anastomosis
Postoperative medical management.
Patient with colovesicular fistula, admitted for elective surgery done by rectal surgery and urology.
Continue pain control.
Now on Full Liquids Diet -- continue
Continue management in IMU postoperative
Monitor H&H postoperatively
Advance diet as tolerated by primary team
PT/OT consult.
Status post Invanz in the OR
Leukocytosis:
NOW RESOLVED
Possibly reactive, received IV antibiotic perioperatively.
Consider reinstate antibiotic if worsening symptoms
History of diabetes mellitus
Insulin sliding scale
Diabetic diet
Hemoglobin A1c on 03/28/25 was 6.2%
Glucose values are currently in acceptable range
History of hypertension
Continue home Lisinopril
History of hypothyroidism.
Continue Synthroid
History of renal cell carcinoma status post nephrectomy in 2005.
Kidney function stable.
Continue to monitor.
Avoid nephrotoxic
CODE STATUS: Full code
DVT prophylaxis: SCDS, pharmacological DVT prophylaxis with subq Heparin as per surgery
Diet: Liquid diet now, advance to diabetic diet once cleared by surgery
Disposition: Continue to monitor in IMU for close monitoring.
Anticipated Discharge: 24 - 48 hours
Subjective/Interval History
-
Date of Service: April 03, 2025
Patient was seen and examined. He denied any new symptoms or complaints.
Objective Data
-
Vital Signs:
Vital Signs
Temp Pulse Resp BP Pulse Ox
98.4 F 58 16 135/61 100
04/03/25 15:05 04/03/25 15:05 04/03/25 15:05 04/03/25 15:05 04/03/25 15:05
I&O
04/02/25 04/03/25 04/04/25
06:59 06:59 06:59
Intake Total 1920 / 1920 1380 / 1380 480 / 480
Output Total 1585 / 1585 2805 / 2805 1005 / 1005
Balance 335 / 335 -1425 / -1425 -525 / -525
[2025-04-03 21:32] LABS: Glucose - Point of Care 117 mg/dl (70-99)
[2025-04-04] MEDS: HEPARIN 5000 UNITS SC ×2 (01:05→08:36)
[2025-04-04] MEDS: TYLENOL 650 MG PO ×2 (01:05→08:36)
[2025-04-04] MEDS: ZESTRIL 5 MG PO (01:07)
[2025-04-04] MEDS: TYLENOL PO (05:05)
[2025-04-04] MEDS: SYNTHROID 25 MCG PO (05:48)
[2025-04-04 06:00] VITALS: BMI 31.7
[2025-04-04 07:23] LABS: Blood Urea Nitrogen 13 mg/dl (9-20); Calcium 8.4 mg/dl (8.4-10.2); Carbon Dioxide 25 mmol/L (22-30); Chloride 108 mmol/L (98-107); Estimated Creatinine Clearance 50 ml/min; Glucose 99 mg/dl (70-99); Potassium 4.2 mmol/L (3.5-5.1); Sodium 135 mmol/L (135-145); eGFR > 60.00
[2025-04-04 07:28] LABS: Hematocrit 28.5 % (39.0-52.0); Hemoglobin 9.0 g/dL (13.0-18.0); Mean Corp Hgb Conc. 31.6 g/dL (33.0-37.0); Mean Corpuscular Volume 102.5 fL (80.0-94.0); Platelet Count 201 10^3/uL (130-400); Red Cell Dist. Width 12.6 % (11.5-14.5)
[2025-04-04 08:00] VITALS: BP 136/59
[2025-04-04] MEDS: SODIUM BICARBONATE 650 MG PO (08:36)
--- NOTE | 2025-04-04 09:14 | W.PN.CRS1 ---
Addendum entered and electronically signed by Luke Tang MD 04/05/25 13:33:
For CDI purposes: diagnoses include anemia likely due to acute blood and hemodilution due to IV fluids
Original Note:
Today's Communication / Plan
-
As below
Assessment/Plan
-
89-year-old male with PMH of RCC s/p R nephrectomy, solitary kidney, CKD, HLD, CVA and colovesical fistula, presenting for elective surgery
POD#3 Robotic low anterior resection secondary to colovesical fistula and bladder repair by urology
AFVSS
WBC 8.4, Hb 9.0 from 9.2, Cr 1.1
-Cont low residue
-Pain control: Tylenol standing, Dilaudid and oxycodone PRN
-Continue chavez secondary to bladder repair
-d/w urology, will send home with leg bag, f/u outpatient for void trial
-Heparin subq for dvt prophylaxis. TEDS/SCDS in place.
-OOB as tolerated with PT/OT
-OR pathology pending
-Appreciate hospitalist
-Dispo: ok for discharge today
Subjective Data
Procedure
03/31/2025- Cystoscopy with left ureteral stent/ICG by Dr. Walker; Robotic cystorrhaphy by Dr. Urena.
Robotic low anterior resection with takedown of splenic flexure, intracorporeal anastomosis
Subjective Data
Date of Service: April 04, 2025
No overnight events.
Pain controlled.
Denies nausea/vomiting. Tolerating diet.
+flatus +BMs + Chavez (s/p bladder repair)
Pt is OOB.
Objective Data
-
Vital Signs
Temp Pulse Resp BP Pulse Ox
98.1 F 57 18 136/59 95
04/04/25 08:00 04/04/25 08:00 04/04/25 08:00 04/04/25 08:00 04/04/25 08:00
Intake & Output
04/03/25 04/04/25 04/05/25
06:59 06:59 06:59
Intake Total 1380 / 1380 720 / 720
Output Total 2805 / 2805 2265 / 2265
Balance -1425 / -1425 -1545 / -1545
Intake:
Oral fluids 480 / 480 720 / 720
IV fluids (Total) 900 / 900
Output:
Drain Output (Total) 305 / 305 215 / 215
Lower Abdomen Robinson-Warren 305 / 305 215 / 215
Urine, Chavez 2049 / 0 1725 / 1725
Urine, Voided 450 / 450 325 / 325
Other:
Number of unmeasured liquid
stools
Rectum 1
Lab Results
04/04/25 06:19
04/04/25 06:19
Physical Exam
-
General: No Acute Distress and AOx3
HEENT: Grossly Normal
Abdomen: Soft, Non Distended, Tender (Appropriately tender near incisions), No Guarding, No Rebound and Other (KAT-minimal serosanguineous, KAT removed)
Skin: Warm and Dry
Wound: No Signs of Infection, No Skin Erythema and Other (Incisions well-approximated without erythema or drainage, covered in Dermabond)
--- NOTE | 2025-04-04 09:49 | CM ---
CM following re: discharge planning.
Reviewed pt's chart, met with pt.
Discharge order noted. Pt is aware, expressed his agreement with discharge. IMM reviewed, placed on chart, pt has a copy.
Pt requested to have [facility] upon the discharge. Pt reports he ambulates with a walker, spouse and son help as needed.
A referral to [facility] made.
Please fax discharge instructions to [facility] at [phone].
D/C plan: home with [facility] and family support. Spouse and son to transport,
[2025-04-04 09:50] LABS: Glucose - Point of Care 101 mg/dl (70-99)
[2025-04-04 10:26] VITALS: BP 159/67; PULSE 58
--- NOTE | 2025-04-04 10:29 | VNURNOTE ---
Home Health Liaison met with patient at bedside to discuss [facility] nurse/therapy, visits, schedule and homebound status. Patient is agreeable and understands that visits at home will be 2-3 x per week to assess and teach medical and chavez management.
Patient is aware that [facility] will contact them for start of care within a week after discharge from . Provided contact number for [facility].
[facility] referral completed in [facility].
[2025-04-04 11:47] VITALS: BP 156/66
--- NOTE | 2025-04-04 12:03 | PN.CDI ---
CDI
- -
CDI:
Physician Documentation Request
Admit Date: 03/31/25 05:54
Dear Doctor Clyde,
Patient is s/p Robotic low anterior resection secondary to colovesical fistula and bladder repair by urology
KAT drain noted to have serosanguineous fluid POD 2
H/H
Laboratory Tests
03/28/25 03/31/25 04/01/25
09:10 15:37 05:19
Hgb 12.1 L 10.4 L 10.3 L
Hct 36.9 L 32.3 L 30.3 L
04/02/25 04/03/25 04/04/25
04:46 05:12 06:19
Hgb 9.3 L 9.2 L 9.0 L
Hct 27.6 L 26.8 L 28.5 L
Could you please provide a diagnosis that supports the above lab abnormalities and additional evaluation, monitoring:
Acute blood loss anemia
Anemia - other please specify
Abnormal lab value clinically insignificant
Other
Use of terms such as suspected, likely, concern for, or probable (associated with a specific diagnosis that is being evaluated, monitored, or treated as if it exists) are acceptable and can be coded in the inpatient setting, when documented at the
time of discharge.
Thank you,
Rachel Epstein RN, BSN
CDI Specialist
tiger text
Please use your independent medical judgment in providing your response.
--- NOTE | 2025-04-11 13:42 | W.DCSUMMARY ---
Discharge Summary
Discharge Data
Date of Admission: 03/31/25
Date of Discharge: 04/11/25
-
Pending Results: Yes
Additional Pending Results:
Pathology
Hospital Course
89-year-old male presented to [facility] to undergo a robotic low anterior resection secondary to a colovesical fistula. This was performed Dr. David Tamez on 03/31/2025. He tolerated procedure well and was brought back
to the medical surgical floor. During the surgery, the fistula of the bladder was repaired by urology and the Chavez remained in place. The day after surgery he was out of bed. He was started on a clear liquid diet. Heparin subcu was started for
DVT prophylaxis. On postop day 2 his diet was advanced to a full liquid diet. On postop day 3 his diet was advanced to low residue. On postop day 4 and intraoperative drain that is in place during surgery was discontinued. He was sent home with
a Chavez leg bag and was to follow-up with urology as an outpatient for void trial. He was discharged to home later that day. All discharge instruction discussed the patient including medications, activity levels, follow-up. All questions were
addressed. Pathology was pending at the time of discharge.
Discharge Plan
-
Patient Disposition: Home with Home Care
Discharge Diagnosis/Procedures: robotic low anterior resection due to colovesical fistula
Diet: Low Residue
Activity: No strenuous activity
Additional Activity: No lifting over 10lbs (gallon of milk)
Driving Restrictions: No driving for 1 week
Bathing Restrictions: OK to Shower
Wound Care: Allow glue to naturally fall off. Do not pick at incisions.
Instructions: How to Care for Your Chavez Catheter, Male, Low-fiber diet
Referrals:
Bassam Tamez MD [Active, ColoRectal] - in two weeks
Bassam Kirby CRNP [Family Provider, Family Practice] - in one week
Ami Urena MD [Active, Urology] - in one week
Additional Discharge Medication Instructions: Tylenol as needed for pain. Maximum dose of Tylenol is 4,000mg in 24 hours.
You will need to schedule an appointment to see the urologist, Dr. Ami Urena, in 1 week from discharge. Call to make the appointment today. She will do a test in the office to determine if your chavez cather can be removed.
Prescriptions:
Continued
levothyroxine 25 MCG tablet
25 mcg PO DAILY
ascorbic acid (vitamin C) [Vitamin C] 500 MG tablet
2,000 mg PO DAILY
vitamin B complex 1 TAB tablet
1 tab PO DAILY
lisinopril 2.5 MG tablet
5 mg PO DAILY@0100
cholecalciferol (vitamin D3) 1,000 UNITS tablet
1,000 units PO DAILY
initmifudmt-V8-Tqbcgigyh serr [Osteo Bi-Flex (5-Loxin)] 1 EACH tablet
2 ea PO DAILY
multivitamin with folic acid [Tab-A-David] 1 TABLET tablet
1 tab PO DAILY
Skyrizi
1 dose SC Q12W
Jardiance 25 mg Tablet
25 mg PO DAILY
sodium bicarbonate 650 mg Tablet
650 mg PO BID
bisacodyl [Dulcolax (bisacodyl)] 5 mg Tablet,Delayed Release (Dr/Ec)
5 mg PO DIRECTED
Discontinued
metronidazole
1 dose PO DIRECTED
Patient Comments:
patient and aware of med day before but do not know dosage
neomycin
1 dose PO DIRECTED
Patient Comments:
patient and aware of med day before but do not know dosage
peg 3350-electrolytes [Golytely] 236-22.74-6.74 -5.86 gram Recon Soln
PO DIRECTED
Discharge Orders:
Discharge Patient (As Directed); Ordered 04/04/25
Ordered By: Doris Nabeel
Discharge Date and Time
Discharge Date/Time: 04/04/25 12:30
Print Language: YAKUT
== END 2025-04-04 12:30 | disposition home health service (06) | DRG 654 ==
LOC: 2 SOUTH 05:54
PROVIDERS: Physician Assistant; Student in an Organized Health Care Education/Training Program; ADMITTING PHYSICIAN Surgery; FAMILY PHYSICIAN Nurse Practitioner Family; OTHER PHYSICIAN General Practice
PROC: 0TQB8ZZ Repair Bladder, Via Natural or Artificial Opening Endoscopic (ICD-10-PCS; 2025-03-31)
PROC: 0DBP4ZZ Excision of Rectum, Percutaneous Endoscopic Approach (ICD-10-PCS; 2025-03-31)
DX: N32.1 Vesicointestinal fistula (principal); D62 Acute posthemorrhagic anemia; K57.32 Diverticulitis of large intestine without perforation or abscess without bleeding; I10 Essential (primary) hypertension; Z85.46 Personal history of malignant neoplasm of prostate; Z90.79 Acquired absence of other genital organ(s)
CPT/HCPCS: 36415; 80048; 80053; 82962; 83036; 85025; 85027; 85610; 85730; 86850; 86900; 86901; 88307; 97116; 97163; 97167; J1335

== ENCOUNTER → 2025-04-29 12:12 | Outpatient (REF) | payer MEDICARE, OTHER, SELFPAY | LOC: REG 12:12 | PROVIDERS: ATTENDING PHYSICIAN Nurse Practitioner Family | DX: M25.511 Pain in right shoulder (principal) | CPT/HCPCS: 73030 ==